=== PATIENT | female | born 1935 | race Caucasian/White ===

== ENCOUNTER 2020-08-19 07:28 | Inpatient (IN) | payer OTHER, MEDICAID, SELFPAY ==
[~2020-08-19] VITALS: Ht 160 cm; Wt 59.0 kg
[2020-08-19 07:28] VITALS: BP 172/67
--- NOTE | 2020-08-19 07:28 | NUR ---
Patient BIBA ALS, transferred to bed 9. RN evaluating patient at bedside.
--- NOTE | 2020-08-19 07:30 | NUR ---
84 YEAR OLD FEMALE BIBA FROM HOME FOR ALTERED LOC. PER EMS PT BS WAS 65 IN ROUTE, WAS GIVEN D5W IN ROUTE AND BS UPON ARRIVAL IS 183. PT AOX2 TO NAME, . PT ALERT AND AWAKE, BREATHING EVEN AND UNLABORED, SKIN COOL AND DRY. PT TEMP 95.5 RECTAL, PLACED 3 BLANKETS ON PT. ERMD AWARE OF PT TEMPERATURE. PT PLACED ON MONITOR, VS STABLE. BED IN LOWEST POSITION, LOCKED, BED RAIL UPX1. PMH - HTN, DM2 ALLERGIES - NKA
[2020-08-19 09:26] LABS: BASOPHILS # (AUTO) 0.1 K/uL (0.00-0.22); BASOPHILS % (AUTO) 2.2 % (0.0-2.0); EOSINOPHILS % (AUTO) 0.5 % (0.0-4.0); HEMATOCRIT 37.1 % (36-48); HEMOGLOBIN 12.3 g/dL (12.0-16.0); LYMPHOCYTES # (AUTO) 0.7 K/uL (2.5-16.5); LYMPHOCYTES % (AUTO) 25.3 % (20.5-51.1); MEAN CORPUSCULAR HEMOGLOBIN 27 pg (27-31); MEAN CORPUSCULAR HGB CONC 33 g/dL (33-37); MEAN CORPUSCULAR VOLUME 81.2 fL (80-94); MONOCYTES # (AUTO) 0.2 K/uL (0.8-1.0); MONOCYTES % (AUTO) 7.4 % (1.7-9.3); NEUTROPHILS # (AUTO) 1.9 K/uL (1.8-7.7); NEUTROPHILS % (AUTO) 64.6 % (42.2-75.2); PLATELET COUNT (AUTO) 149 K/uL (140-450); RED BLOOD CELL COUNT(AUTO) 4.57 MIL/uL (4.20-5.40); RED CELL DISTRIBUTION WIDTH 14.9 % (11.6-13.7)
[2020-08-19 09:35] LABS: ANION GAP 13.1 (8-16); CARBON DIOXIDE 26.9 mmol/L (21-32); CHLORIDE 98 mmol/L (98-107); CREATININE 0.7 mg/dL (0.6-1.3); GLUCOSE 164 mg/dL (74-106); SODIUM SERUM 134 mmol/L (136-145); UREA NITROGEN, BLOOD 12 mg/dL (7-18)
[2020-08-19 09:37] LABS: PROTHROMBIN TIME 9.5 secs (10.8-13.4)
[2020-08-19 09:39] LABS: LACTATE DEHYDROGENASE 209 U/L (81-234)
[2020-08-19 09:48] LABS: ALBUMIN 3.5 g/dL (3.4-5.0); ASPARTATE AMINOTRANSFERASE 32 U/L (15-37); TOTAL BILIRUBIN 0.5 mg/dL (0.0-1.0)
[2020-08-19] MEDS ORDERED: CARV25TA PO (10:08)
[2020-08-19] MEDS ORDERED: ASPI-1822 PO (10:08)
[2020-08-19] MEDS ORDERED: LOSA50TA57 PO (10:08)
[2020-08-19] MEDS ORDERED: [UNRECOGNIZED DRUG - CODE] PO (10:08)
[2020-08-19] MEDS ORDERED: GLIP10TE PO (10:08)
[2020-08-19] MEDS ORDERED: AMLO10TA PO (10:08)
[2020-08-19] MEDS ORDERED: CHOL200074 PO (10:08)
[2020-08-19] MEDS ORDERED: METF850T PO (10:08)
[2020-08-19] MEDS ORDERED: SITA100T8 PO (10:08)
[2020-08-19] MEDS ORDERED: ATOR10TA PO (10:08)
--- NOTE | 2020-08-19 10:09 | NUR ---
COVID, FLU, RSV, AND POLLY SWAB AT LAB
[2020-08-19 10:15] LABS: RSV NEGATIVE (NEGATIVE)
--- NOTE | 2020-08-19 10:32 | NUR ---
PT ALERT AND AWAKE, BREATHING EVEN AND UNLABORED. NO DISTRESS NOTED.
[2020-08-19 10:37] LABS: C-REACTIVE PROTEIN QUANT 1.8 mg/dL (0.0-0.9)
--- NOTE | 2020-08-19 12:00 | NUR ---
PT ALERT AND AWAKE, BREATHING EVEN AND UNLABORED. NO DISTRESS NOTED
[2020-08-19] MEDS ORDERED: POTASSIUM CHLORIDE 10 MEQ TABER PO PRN (12:45)
[2020-08-19] MEDS ORDERED: LORazepam 1 MG TAB PO PRN (12:45)
[2020-08-19] MEDS ORDERED: HYDROcodone/APAP 5/325 MG 1 TAB TAB PO PRN (12:45)
[2020-08-19] MEDS ORDERED: ACETAMINOPHEN 325 MG TAB PO PRN (12:45)
[2020-08-19] MEDS ORDERED: ONDANSETRON 4 MG/2 ML VIAL IVP PRN (12:45)
[2020-08-19] MEDS ORDERED: MAG SULF 2000 MG/WATER PREMIX 50 ML IV PRN (12:45)
[2020-08-19] MEDS ORDERED: KCL 20 MEQ/WATER INJ PREMIX 200 ML IV PRN (12:45)
[2020-08-19] MEDS ORDERED: AZITHROMYCIN 500 MG INJ VIAL IV ONE (13:34)
--- NOTE | 2020-08-19 14:00 | NUR ---
PT ALERT AND AWAKE, BREATHING EVEN AND UNLABORED. NO DISTRESS NOTED. PT ASSISTED WITH URINATION
[2020-08-19] MEDS: AZITHROMYCIN 500 MG in DEXTROSE 5% 250 ML IV SCH (14:05)
[2020-08-19 14:42] LABS: APPEARANCE,URINE CLEAR (CLEAR); BILIRUBIN,URINE NEGATIVE (NEGATIVE); BLOOD, URINE NEGATIVE (NEGATIVE); COLOR,URINE YELLOW (YELLOW); LEUKOCYTE ESTERASE ,URINE NEGATIVE (NEGATIVE); NITRITE, URINE NEGATIVE (NEGATIVE); UGLUCOSE TRACE (NEGATIVE)
[2020-08-19] MEDS ORDERED: cefTRIAXone 1,000 MG VIAL ONE (15:27)
--- NOTE | 2020-08-19 16:00 | NUR ---
PT ALERT AND AWAKE, BREATHING EVEN AND UNLABORED. NO DISTRESS NOTED
--- NOTE | 2020-08-19 18:00 | NUR ---
PT ALERT AND AWAKE, BREATHING EVEN AND UNLABORED. NO DISTRESS NOTED
--- NOTE | 2020-08-19 19:32 | NUR ---
REPORT GIVEN TO KAT LARIOS, TRANSFER OF CARE AT THIS TIME
--- NOTE | 2020-08-19 19:48 | NUR ---
Elijah reynolds in [facility] - 08/19/20 at 1948 by ZEN REPORT RECEIVED FROM KALLI LARIOS
--- NOTE | 2020-08-19 19:49 | NUR ---
HELPED PT WITH BEDPAN, PT VOIDED 400ML OF CLEAR IMANI URINE
--- NOTE | 2020-08-19 19:49 | NUR ---
REPORT RECEIVED FROM KALLI LARIOS
--- NOTE | 2020-08-19 19:49 | NUR ---
DINNER TRAY COLLECTED FROM PT, PT ATE APPROXIMATELY 40%
--- NOTE | 2020-08-19 23:00 | NUR ---
PT SLEEPING. RESPIRATIONS REGULAR EVEN AND UNLABORED. PT REMAINS ON BEDSIDE MONITOR
--- NOTE | 2020-08-20 01:27 | NUR ---
HELPED PT WITH BEDPAN, 325ML OF URINE OUTPUT. PT RESPOSITINED IN BED. BED REMAINS IN LOWEST POSITION AND SIDERAIL UP X 1. PT ON BEDSIDE MONITOR. RESPIRATIONS REGULAR EVEN AND UNLABORED.
--- NOTE | 2020-08-20 04:00 | NUR ---
PT SLEEPING. RESPIRATIONS REGULAR EVEN AND UNLABORED. PT REMAINS ON BEDSIDE MONITOR. WILL CONTINUE TO MONITOR PT
[2020-08-20 06:54] VITALS: BP 147/70
--- NOTE | 2020-08-20 07:15 | NUR ---
RECEIVED ENDORSEMENT FROM MANAGER REPORT, AWAKE,ALERT, ORIENTEDX4 , WITH O2 AT 15L/MIN VIA NON REBREATHER MASK, [id number]-21%. ADMITTED A CASE OF COVID AND ACUTE RESPIRATORY FAILURE, WITH IV CANNULA G20 AT LEFT HAND ON SALINE LOCK NOTED. SAFETY MEASURES IN PLACE AND CONTINUE MONITOR Addendum: 08/20/20 at 1033 by Cuate Borrego RN WRONG PATIENT ENTRY.
--- NOTE | 2020-08-20 07:21 | NUR ---
RECEIVED ENDORSEMENT FROM COMMUTATOR INSPECTOR, AWAKE, ALERT, ORIENTEDX2, VIETNAMESE SPEAKER, BREATHING SPONTANEOUSLY AT ROOM AIR, NOT IN DISTRESS NOTED. WITH IV CANNULA G 20 AT RT AC ON SALINE LOCK NOTED. ADMITTED CASE OF COVID, ACUTE RESPIRATORY FAILURE, AWAITS BED IN TELEMETRY. SAFETY MEASURES IN PLACE AND CONTINUE MONITOR
--- NOTE | 2020-08-20 07:34 | NUR ---
Pt report given to PATRICK LRAIOS. Transfer of care at this time.
--- NOTE | 2020-08-20 07:39 | NUR ---
POLLY SWAB COLLECTED AND TAKEN TO LAB
[2020-08-20] MEDS ORDERED: DOCUSATE SODIUM 100 MG GELCAP PO SCH (09:00)
[2020-08-20] MEDS ORDERED: ASPIRIN 81 MG TAB.CHEW PO SCH (09:00)
[2020-08-20] MEDS ORDERED: ATORVASTATIN 20 MG TAB PO SCH (09:00)
[2020-08-20] MEDS ORDERED: carvediloL 12.5 MG TAB PO SCH (09:00)
[2020-08-20] MEDS ORDERED: amLODIPine 5 MG TAB PO SCH (09:00)
[2020-08-20] MEDS ORDERED: LOSARTAN 50 MG TAB PO SCH (09:00)
--- NOTE | 2020-08-20 09:19 | NUR ---
[facility] CONTACTED FOR TRANSFER EXT 302 FOR 23 TIMES, NO ANSWER.
--- NOTE | 2020-08-20 09:21 | NUR ---
PATIENT HAS BEEN SCREENED AND CATEGORIZED MODERATE NUTRITION RISK. PATIENT WILL BE SEEN WITHIN 3-5 DAYS OF ADMISSION. 08/22/20 08/24/[address]
[2020-08-20 09:46] LABS: BASOPHILS # (AUTO) 0.2 K/uL (0.00-0.22); BASOPHILS % (AUTO) 4.1 % (0.0-2.0); EOSINOPHILS % (AUTO) 0.1 % (0.0-4.0); HEMATOCRIT 35.2 % (36-48); HEMOGLOBIN 11.5 g/dL (12.0-16.0); LYMPHOCYTES # (AUTO) 1.1 K/uL (2.5-16.5); LYMPHOCYTES % (AUTO) 27.2 % (20.5-51.1); MEAN CORPUSCULAR HEMOGLOBIN 27 pg (27-31); MEAN CORPUSCULAR HGB CONC 33 g/dL (33-37); MEAN CORPUSCULAR VOLUME 81.9 fL (80-94); MONOCYTES # (AUTO) 0.5 K/uL (0.8-1.0); MONOCYTES % (AUTO) 11.6 % (1.7-9.3); NEUTROPHILS # (AUTO) 2.4 K/uL (1.8-7.7); PLATELET COUNT (AUTO) 197 K/uL (140-450); RED CELL DISTRIBUTION WIDTH 14.7 % (11.6-13.7); WHITE BLOOD COUNT (AUTO) 4.2 K/uL (4.8-10.8)
--- NOTE | 2020-08-20 10:01 | NUR ---
FULLY AWAKE AND ALERT, DUE MEDICATION GIVEN, TOLERATED ORALLY
[2020-08-20 10:10] LABS: CHOL/HDL RATIO 2.6 (1-4.5); MAGNESIUM 1.7 mg/dL (1.8-2.4)
[2020-08-20 10:16] LABS: ANION GAP 10.9 (8-16); ASPARTATE AMINOTRANSFERASE 26 U/L (15-37); CARBON DIOXIDE 30.3 mmol/L (21-32); CHLORIDE 101 mmol/L (98-107); CREATININE 0.6 mg/dL (0.6-1.3); GLUCOSE 132 mg/dL (74-106); POTASSIUM 4.2 mmol/L (3.5-5.1); SODIUM SERUM 138 mmol/L (136-145); TOTAL BILIRUBIN 0.4 mg/dL (0.0-1.0); UREA NITROGEN, BLOOD 6 mg/dL (7-18)
--- NOTE | 2020-08-20 10:16 | NUR ---
[facility] CONTACTED 2 TIMES 3021 FOR TRANSFER, NO ANSWER.
--- NOTE | 2020-08-20 11:15 | NUR ---
[facility] CONTACTED FOR TRANSFER AND SPOKE WITH SWEI AND REPORT GIVEN
--- NOTE | 2020-08-20 11:49 | NUR ---
ENDORSED TO [facility] HARRIET RODRIGUEZ IN STABLE CONDITION FOR CONTINUITY OF CARE.
--- NOTE | 2020-08-20 11:49 | NUR ---
SOCIAL WORK NOTE: Patient's Orientation Unable To Assess Information Provided By ELLEN GAMEZ - DAUGHTER Comments SW WAS UNABLE TO MEET PATIENT AT BEDSIDE DUE TO MEDICAL CONDITION. SW COMPLETED ASSESSMENT WITH PATIENT'S DAUGHTER. Proposal Development Manager, Realtionship and Phone Number ELLEN FALCON [phone] Healthcare Power of Manager News No Does Patient Have a POLST No Identifying Problems No Social Work Triggers Is A Social Work Consult Needed No Mandate Report Filed No Explanation Of Identifying Problems PATIENT IS AN 84-YEAR-OLD ADMITTED FOR ACUTE HYPOXIC RESPIRATORY FAILURE. PATIENT HAS PMHX OF HYPERTENSION AND DIABETES. Admitted From Home Pre-Admission Level Of Functioning Status Independent With DME Prior DME Walker Dialysis Comments N/A Living Situation House Lives With Spouse Patient Had Caregiver No Home Support No Caregiver Issues Financial Issues No Known Financial Issue Referral To The Financial Counselor Needed No Factors/Needs No D/C Needs Identified Explanation And Or Other Factors Affecting/Possible DC Needs DAUGHTER STATED THAT SHE WILL MOVE IN WITH PATIENT TO ASSIST PATIENT AT HOME. Pt/Rep Participated In Discharge Plan Yes Patient/Family Agress With Discharge Plan Yes Discharge Plan Comments TENTATIVE DISCHARGE PLAN IS FOR PATIENT TO RETURN HOME. DC Plan Status Initiated
--- NOTE | 2020-08-20 11:50 | NUR ---
RECEIVED REPORT FROM ER NURSE FOR CONTINUITY OF CARE. PATIENT IS MARTIN[place]QUA[place] SPEAKING, AAOX3. RESPIRATORY EVEN AND UNLABORED WITH ROOM AIR. SKIN WARM AND DRY, INTACT. ABDOMEN SOFT AND NON TENDER. NO ACUTE DISTRESS NOTED AT THIS TIME. ORIENTED THE PATIENT WITH HOSPITAL ENVIRONMENT. MRSA NARES COLLECTED. NO ACUTE DISTRESS NOTED AT THIS TIME. SAFETY MEASURES IN PLACE. WILL CONTINUE TO MONITOR.
[2020-08-20] MEDS: AZITHROMYCIN 500 MG in DEXTROSE 5% 250 ML IV SCH (12:52)
--- NOTE | 2020-08-20 12:52 | NUR ---
ZITHROMAX GIVEN VIA IVPB, EDUCATION PROVIDED. MORNING BP MED NON GIVEN IN ER. LOSARTAN AND CARVEDILOL GIVEN, BP 159/81. PATIENT TOLERATED WELL. SAFETY MEASURES IN PLACE, WILL CONTINUE TO MONITOR.
--- NOTE | 2020-08-20 14:55 | NUR ---
PATIENT'S IV ON THE RIGHT AC INFILTRATED. IV REMOVED WITH INTACT CANNULA. INSERT NEW IV ON THE LEFT FOREARM 22 G WITH BLOOD RETURN AND EASILY TO FLUSH WITH NS. IV ROCEPHIN ADMINISTERED VIA IVPB. EDUCATION PROVIDED. SAFETY MEASURES IN PLACE, CALL LIGHT WITHIN REACH. WILL CONTINUE TO MONITOR.
--- NOTE | 2020-08-20 15:41 | NUR ---
DC PLANN[age] YRS OLD FEMALE PATIENT WAS ADMITTED FROM HOME WITH A DX OF ACUTE HYPOXIC RESP FAILURE ,COVID. PT HAS A HX OF HTN AND DM. CXR SHOWED MILD BIBASAL INTERSTITIAL EDEMA VERSUS MULTIFOCAL PNEUMONIA. RAPID COVID TEST POSITIVE PCR AND URINE CULTURE PENDING. STARTED COVID PROTOCOL REMDESIVER, ROCEPHIN AND AZITHROMYCIN. ON ROOM AIR SATING 96% . CONSULTED WITH PULMO AND ID . DC PLANING TO GO HOME WHEN STABLE CM TO FOLLOW.
[2020-08-20] MEDS ORDERED: DEXA6TAB2 PO (16:23)
[2020-08-20] MEDS ORDERED: APIX2.5 PO (16:23)
--- NOTE | 2020-08-20 17:16 | NUR ---
PATIENT RESTING IN BED WITH SEMI PRAHDAN POSITION. NO ACUTE DISTRESS NOTED. SAFETY MEASURES IN PLACE, WILL CONTINUE TO MONITOR.
[2020-08-20] MEDS ORDERED: PNEUMOCOCCAL VACCINE 23 MCG/0.5 ML VIAL IMVAC SCH (18:50)
--- NOTE | 2020-08-20 19:40 | NUR ---
ENDORSED PATIENT TO SERVICE CAPTAIN RN FOR CONTINUITY OF CARE/DISCHARGE. PATIENT IN STABLE CONDITION.
--- NOTE | 2020-08-20 19:41 | NUR ---
RECEIVED BESIDE REPORT FROM DAY RN, AWAKE, ALERT, ORIENTEDX3, GUINEAN SPEAKER, BREATHING SPONTANEOUSLY AT ROOM AIR, LUNG SOUNDS ARE CLEAR. WITH IV ON L FA 22G SL. ON DROPLET ISOLATION FOR COVID 19. ORDER FOR D/C. D/C REVIEWED WITH PT. PRESCRIPTION GIVEN TO PT. MED EDUCATION GIVEN. CALLED PT'S DAUGHTER FOR WIND SCIENCE AND PLANNING. ASSISTED PT TO CHANGE INTO HOME CLOTHES. IV ON LFA REMOVED. IV CATH IS INTACT. ALL D/C DISCUSSED WITH PT. NO FURTHER QUESTIONS. CALL LIGHT IS WITHIN REACH. WILL CONTINUE TO MONITOR.
--- NOTE | 2020-08-20 21:08 | NUR ---
PATIENT WAS WHEELED OUT TO FRONT LOBBY BY SURGICAL SCRUB TECH. ARM BAND WAS REMOVED. ALL D/C PAPER WORK AND PRESCRIPTION WITH PT. DAUGHTER IS OUTSIDE FOR RIDDLER OPERATOR. PT LEFT IN STABLE CONDITION.
== END 2020-08-20 21:10 | disposition home or self-care (01) | DRG 177 ==
LOC: MED 07:28 → MTU 12:47
PROVIDERS: ADMIT Hospitalist; ATTEND Hospitalist
DX: U07.1 COVID-19 (principal); J96.01 Acute respiratory failure with hypoxia; J12.89 Other viral pneumonia; G93.40 Encephalopathy, unspecified; I10 Essential (primary) hypertension; E11.649 Type 2 diabetes mellitus with hypoglycemia without coma; Z79.82 Long term (current) use of aspirin; Z79.84 Long term (current) use of oral hypoglycemic drugs; Z79.899 Other long term (current) drug therapy; Z90.49 Acquired absence of other specified parts of digestive tract
CPT/HCPCS: 36415; 36600; 71045; 80053; 81003; 82550; 82728; 82803; 83036; 83605; 83615; 83735; 83880; 84484; 85025; 85379; 85384; 85610; 85730; 86140; 87040; 87081; 87086; 87420; 87804; 93005; 99291; J0456; J0696; J7060; U0003